=== PATIENT | male | born 1960 | race Hispanic/Latino ===

== ENCOUNTER 2020-12-07 17:12 | Emergency (ER) | payer SELFPAY ==
[2020-12-07 18:00] VITALS: BP 128/73
--- NOTE | 2020-12-07 19:54 | Emergency Department Report ---
- General Chief complaint: Extremity Problem,Nontraumatic Stated complaint: INSECT BITES Time Seen by Provider: 12/07/20 19:50 Source: patient Mode of arrival: Ambulatory Limitations: No Limitations - History of Present Illness Initial comments: 60-year-old male presents to the emergency room reporting that he was bit by some type of insect on Thursday on his left lower leg. Patient states that it is not getting any better and is actually getting bigger. Patient denies any fever chills no nausea no vomiting. Patient states is been taken ibuprofen and Tylenol for pain. He denies any past medical history currently takes no medications on a daily basis and has no known drug allergies. complaint: insect bite/sting Onset/Timin -: days(s) Tetanus Up to Date: unsure Location: LLE Severity: moderate Quality: aching Consistency: intermittent Improves with: none Worsens with: none Context: none Associated symptoms: denies other symptoms Treatments Prior to Arrival: NSAID - Related Data Previous Rx's Medication Instructions Recorded Last Taken Type Ibuprofen [Motrin 800 MG tab] 800 mg PO Q8HR PRN #30 tablet 12/07/20 Unknown Rx Sulfamethoxazole/Trimethoprim 1 each PO BID 10 Days #20 tablet 12/07/20 Unknown Rx [Bactrim DS TAB] Allergies Allergy/AdvReac Type Severity Reaction Status Date / Time No Known Allergies Allergy Unverified 12/07/20 17:57 Abscess Boil HPI - HPI Chief Complaint: Extremity Problem,Nontraumatic Stated Complaint: INSECT BITES Time Seen by Provider: 12/07/20 19:50 Home Medications: Previous Rx's Medication Instructions Recorded Last Taken Type Ibuprofen [Motrin 800 MG tab] 800 mg PO Q8HR PRN #30 tablet 12/07/20 Unknown Rx Sulfamethoxazole/Trimethoprim 1 each PO BID 10 Days #20 tablet 12/07/20 Unknown Rx [Bactrim DS TAB] Allergies/Adverse Reactions: Allergies Allergy/AdvReac Type Severity Reaction Status Date / Time No Known Allergies Allergy Unverified 12/07/20 17:57 ED Review of Systems ROS: Stated complaint: INSECT BITES Other details as noted in HPI Comment: All other systems reviewed and negative ED Past Medical Hx - Past Medical History Previous Medical History?: No - Surgical History Past Surgical History?: Yes Additional Surgical History: back surgery - Medications Home Medications: Home Medications Medication Instructions Recorded Confirmed Last Taken Type Ibuprofen [Motrin 800 MG tab] 800 mg PO Q8HR PRN #30 tablet 12/07/20 Unknown Rx Sulfamethoxazole/Trimethoprim 1 each PO BID 10 Days #20 tablet 12/07/20 Unknown Rx [Bactrim DS TAB] ED Physical Exam - General Limitations: No Limitations General appearance: alert, in no apparent distress - Head Head exam: Present: atraumatic, normocephalic - Eye Eye exam: Present: normal appearance - ENT ENT exam: Present: mucous membranes moist - Neck Neck exam: Present: normal inspection, full ROM - Respiratory Respiratory exam: Absent: respiratory distress, accessory muscle use - Cardiovascular Cardiovascular Exam: Present: regular rate - Extremities Exam Extremities exam: Present: full ROM, tenderness (Left lower leg mild tenderness, erythematous) - Back Exam Back exam: Present: normal inspection - Neurological Exam Neurological exam: Present: alert, oriented X3, normal gait - Psychiatric Psychiatric exam: Present: normal affect, normal mood - Expanded Skin Exam Expanded Distribution of rash: LLE (Anterior lower leg) Description of rash: Present: tenderness, erythematous, swelling, blisters, indurated ED Course Vital Signs 12/07/20 17:59 Temperature 98.5 F Pulse Rate 77 Respiratory 18 Rate Blood Pressure 128/73 O2 Sat by Pulse 98 Oximetry ED Medical Decision Making - Medical Decision Making 60-year-old male presents to the emergency room reporting that he was bit by some type of insect on Thursday on his left lower leg. Patient states that it is not getting any better and is actually getting bigger. Patient denies any fever chills no nausea no vomiting. Patient states is been taken ibuprofen and Tylenol for pain. He denies any past medical history currently takes no medications on a daily basis and has no known drug allergies. Patient appears to have cellulitis of his left lower leg. We will place patient on Bactrim double strength 1 pill p.o. twice daily for 10 days. Ibuprofen 800 mg p.o. every 8 hours as needed for pain. Increase fluid intake. Follow-up with your primary care provider. Critical care attestation.: If time is entered above; I have spent that time in minutes in the direct care of this critically ill patient, excluding procedure time. ED Disposition Clinical Impression: Cellulitis of left leg without foot Disposition: TO HOME OR SELFCARE Is pt being admited?: No Does the pt Need Aspirin: No Condition: Stable Instructions: Cellulitis, Adult, [id number] Additional Instructions: Complete antibiotics as prescribed. Ibuprofen as needed for pain. Increase your fluid intake. Follow-up with a primary care provider. Return back to the emergency room if any worsening or new concerns. Prescriptions: Sulfamethoxazole/Trimethoprim [Bactrim DS TAB] 1 each PO BID 10 Days #20 tablet Ibuprofen [Motrin 800 MG tab] 800 mg PO Q8HR PRN #30 tablet PRN Reason: Pain , Severe (7-10) Referrals: DARNELL DAY MD [Staff Physician] - 3-5 Days Time of Disposition: 19:53
== END 2020-12-07 20:05 | disposition home or self-care (01) ==
LOC: ED 17:12
DX: L03.116 Cellulitis of left lower limb (principal); Z98.890 Other specified postprocedural states; Z79.899 Other long term (current) drug therapy
CPT/HCPCS: 99282